=== PATIENT | male | born 1925 | race Caucasian/White ===

== ENCOUNTER 2016-11-06 23:18 | Emergency (ER) | payer MEDICARE, BC ==
[~2016-11-06] VITALS: Ht 177.8 cm; Wt 68.0 kg
[~2016-11-06 23:18] MED LIST: ACET325 PO; AMIO200 PO; ASPI650T PO; ATOR10 PO; CEPH500; DIPH50TA PO; DUONI NEB; FERR50TA PO; FLEEENE3 RE; FURO1TAB93 PO; GINK60TA2 PO; LORTA5 PO; MILKSUS5 PO; OYST500T71 PO; POTA-243 PO; PROT40TA PO; TAB-TAB PO; TRAM50TA PO; [UNRECOGNIZED DRUG - REMARK]
[2016-11-06 23:33] VITALS: BP 160/73; PULSE 65; RESP 18; TEMP 97.9; O2SAT 100
== END 2016-11-07 01:00 | disposition left against medical advice (07) ==
LOC: PHED 23:18
DX: D22.9 Melanocytic nevi, unspecified (principal)
CPT/HCPCS: 99281